=== PATIENT | female | born 1995 | race Two or more races ===

== ENCOUNTER 2017-09-27 20:03 | Emergency (ER) | payer OTHER ==
--- NOTE | 2017-09-27 20:20 | PDOC ---
Rapid Medical Evaluation Time Seen by Provider: 09/27/17 20:22 Medical Evaluation: Allergies Allergy/AdvReac Type Severity Reaction Status Date / Time No Known Allergies Allergy Verified 01/20/16 10:17 I have performed a brief in-person evaluation of this patient. The patient presents with a chief complaint of: LLQ pain radiating to left flank x1 week Pertinent physical exam findings: ABD: Obese abdomen. Soft nondistended. Tender to light palpation over LLQ. : Left CVAT. I have ordered the following: UPT, UA, CBC, CMP, Spiral CT of abdomen, Toradol The patient will proceed to the ED for further evaluation.
[2017-09-27 20:25] VITALS: BP 125/65; PULSE 96; TEMP 98.6; BMI 41.0
[2017-09-27] MEDS ORDERED: KETOROLAC TROMETHAMINE 30 MG/1 ML VIAL IVPUSH ONE (20:25)
[2017-09-27] MEDS ORDERED: SODIUM CHLORIDE 1,000 ML IV STA (20:25)
--- NOTE | 2017-09-27 22:40 | PDOC ---
History of Present Illness - General Chief Complaint: Pain Stated Complaint: ABD PAIN Time Seen by Provider: 09/27/17 20:21 - History of Present Illness Initial Comments: 22-year-old female with PMH of migraines presenting to the ED with LLQ abdominal pain and occasional back pain with urinary frequency. She states the pain started suddenly one night prior to her presentation in the ED and has not remitted. She describes the pain as an achy 5/10-7/10 left lower quadrant pain that is somewhat positional in nature. She also started to experience the pain her left lower back as well. She note some increased urinary frequency over the past week as well without hematuria or dysuria. Denies exacerbating or relieving symptoms. She has taken some advil without relief. Denies any N/V/D, dysuria, hematuria, chest pain, or other symptoms. 09/27/17 22:43 Past History - Past Medical History Allergies/Adverse Reactions: Allergies Allergy/AdvReac Type Severity Reaction Status Date / Time No Known Allergies Allergy Verified 09/27/17 20:21 Home Medications: Ambulatory Orders Diphenhydramine [Benadryl -] 25 mg PO TID 01/20/16 Divalproex [Depakote -] 125 mg PO BID #14 tablet. 01/20/16 Metoclopramide HCl 10 mg PO TID 01/20/16 Nadolol 20 mg PO BID 01/20/16 Nortriptyline HCl [Pamelor -] 75 mg PO BID 01/20/16 Tizanidine HCl 4 mg PO TID 01/20/16 Topiramate [Topamax] 25 mg PO TID 01/20/16 Topiramate [Topamax] 100 mg PO BID 01/20/16 Ibuprofen 800 mg PO TID #30 tablet 09/28/17 Asthma: Yes COPD: No HTN: Yes - Surgical History Appendectomy: Yes - Suicide/Smoking/Psychosocial Hx Smoking History: Never smoked Have you smoked in the past 12 months: No Information on smoking cessation initiated: No Hx Alcohol Use: No Drug/Substance Use Hx: No Substance Use Type: None Review of Systems - Review of Systems Constitutional: No: Chills, Fever HEENTM: No: Eye Pain, Blurred Vision Respiratory: No: Cough, Shortness of Breath, Wheezing Cardiac (ROS): No: Chest Pain, Edema ABD/GI: No: Constipated, Diarrhea, Nausea, Vomiting : No: Burning, Frequency Musculoskeletal: Yes: Back Pain *Physical Exam - Vital Signs Last Vital Signs Temp Pulse Resp BP Pulse Ox 98.6 F 96 H 20 125/65 98 09/27/17 20:22 09/27/17 20:22 09/27/17 20:22 09/27/17 20:22 09/27/17 20:22 - Physical Exam General Appearance: Yes: Nourished, Appropriately Dressed. No: Apparent Distress HEENT: positive: EOMI, CLAUDIA, Normal Voice Neck: positive: Trachea midline, Normal Thyroid, Supple. negative: Tender, Rigid Respiratory/Chest: positive: Lungs Clear, Normal Breath Sounds. negative: Chest Tender, Respiratory Distress Cardiovascular: positive: Regular Rhythm, Regular Rate. negative: Murmur Gastrointestinal/Abdominal: positive: Normal Bowel Sounds, Tender (Some left lower quadrant tenderness to to deep palpation), Flat, Soft Musculoskeletal: positive: Normal Inspection, CVA Tenderness (Left sided CVA tenderness vs. paraspinal muscular tenderness) Extremity: positive: Normal Capillary Refill, Normal Inspection, Normal Range of Motion. negative: Tender Integumentary: positive: Normal Color, Dry, Warm Neurologic: positive: Fully Oriented, Alert, Normal Mood/Affect, Normal Response , Motor Strength 5/5 ED Treatment Course - LABORATORY CBC & Chemistry Diagram: 09/27/17 23:49 09/28/17 00:36 Medical Decision Making - Medical Decision Making 22 year old f with history of migraines presenting with abdominal pain and urinary frequency. This is most concerning for a renal calculus but should also be ruled out. The other possibility is diverticulitis. However, she does not have fever so diverticulitis less likely. CT abdomen significant for mesenteric inflammation leading us to a possible diagnosis of mesenteric adenitis. Patient feelign better after two doses of toradol 15 IV, maalox, and famotidie. Will DC home with follow up with her PCP and Dr. Rogers of general surgery. 09/28/17 04:58 *DC/Admit/Observation/Transfer Diagnosis at time of Disposition: Mesenteric adenitis - Prescriptions Prescriptions: Ibuprofen 800 mg PO TID #30 tablet - Referrals Referrals: Mitchell Francis MD [Staff Physician] - Patrick Rogers MD [Staff Physician] - - Patient Instructions Printed Discharge Instructions: DI for Mesenteric Adenitis-Adult Additional Instructions: Take Motrin for pain as directed. Drink plenty of fluids and have plenty of bed rest - Post Discharge Activity Forms/Work/School Notes: Back to Work
--- NOTE | 2017-09-27 22:51 | PDOC ---
Attending Attestation - HPI HPI: 09/27/17 22:57 The patient is a 22 year old female with no significant PMH who presents to the emergency department with 1 day of abdominal pain. She reports the abdominal pain begins in the LLQ and radiates to her back. The patient also reports slight nausea and increased urinary frequency during the past day. The patient denies any recent trauma. Denies sick contacts or recent travel. The patient denies chest pain, shortness of breath, headache and dizziness. Denies fever, chills, vomit, diarrhea and constipation. Denies dysuria, urgency and hematuria. <Ben Santiago - Last Filed: 09/27/17 22:57> - Resident Resident Name: Jaden Bauer - ED Attending Attestation I have performed the following: I have examined & evaluated the patient, The case was reviewed & discussed with the resident, I agree w/resident's findings & plan, Exceptions are as noted - Physicial Exam PE: 09/28/17 02:30 *Physical Exam General Appearance: Yes: Appropriately Dressed. No: Apparent Distress, Intoxicated HEENT: positive: EOMI, CLAUDIA, Normal ENT Inspection, Normal Voice, TMs Normal, Pharynx Normal. negative: Pale Conjunctivae, Photophobia, Scleral Icterus (R), Scleral Icterus (L) Neck: positive: Trachea midline, Normal Thyroid, Supple. negative: Tender, Rigid, Carotid bruit, Stridor, Lymphadenopathy (R), Lymphadenopathy (L), Thyromegaly Respiratory/Chest: positive: Lungs Clear, Normal Breath Sounds. negative: Chest Tender, Respiratory Distress, Accessory Muscle Use, Labored Respiration, RES, Crackles, Rales, Rhonchi, Stridor, Wheezing, Dullness Cardiovascular: positive: Regular Rhythm, Regular Rate, S1, S2. negative: Edema , JVD, Murmur, Bradycardia, Tachycardia Vascular Pulses: Dorsalis-Pedis (R): 2+, Doralis-Pedis (L): 2+ Gastrointestinal/Abdominal: positive: Normal Bowel Sounds, Flat, Soft. negative : Tender, Organomegaly, Pulsatile Mass, Increased Bowel Sounds, Decreased BS, Distended, Guarding, Rebound, Hernia, Hepatomegaly, Spleenomegaly Lymphatic: negative: Adenopathy, Tenderness Musculoskeletal: positive: Normal Inspection. negative: CVA Tenderness, Decreased Range of Motion Extremity: positive: Normal Capillary Refill, Normal Inspection, Normal Range of Motion, Pelvis Stable. negative: Tender, Pedal Edema, Swelling, Erythema Integumentary: positive: Normal Color, Dry, Warm. 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 negative: EOM Palsy, Facial Droop, Sensory Deficit - Medical Decision Making 09/28/17 19:18 Pt feels better. Pt discharged with Motrin and advised to drink plenty of fluids and better <Jose Menjivar - Last Filed: 09/28/17 19:19> Discharge Disposition <Ben Santiago - Last Filed: 09/27/17 22:57> - Discharge Dispostion Admit: No <Jose Menjivar - Last Filed: 09/28/17 19:19> - Diagnosis Mesenteric adenitis - Discharge Dispostion Disposition: HOME - Prescriptions Prescriptions: Ibuprofen 800 mg PO TID #30 tablet - Referrals Referrals: Mitchell Francis MD [Staff Physician] - Patrick Rogers MD [Staff Physician] - - Patient Instructions Printed Discharge Instructions: DI for Mesenteric Adenitis-Adult Additional Instructions: Take Motrin for pain as directed. Drink plenty of fluids and have plenty of bed rest - Post Discharge Activity Work/School Note: Back to Work
[2017-09-27] MEDS ORDERED: ONDANSETRON 4 MG/2 ML VIAL IVPUSH ONE (23:51)
[2017-09-27 23:59] LABS: BASOPHIL 0.9 % (0-2.0); EOSINOPHIL 2.9 % (0-4.5); MCH 25.2 pg (25.7-33.7); MEAN CELL VOLUME 76.5 fl (80-96); MEAN PLT VOLUME 8.9 fl (7.5-11.1); NEUTROPHILS 40.8 % (42.8-82.8); PLATELET COUNT 347 K/MM3 (134-434); RDW 14.9 % (11.6-15.6); WHITE BLOOD COUNT 6.5 K/mm3 (4.0-10.0)
[2017-09-27] MEDS ORDERED: ONDANSETRON 4 MG/2 ML VIAL ONE ×2 (23:59)
[2017-09-27] MEDS ORDERED: KETOROLAC TROMETHAMINE 30 MG/1 ML VIAL ONE (23:59)
[2017-09-28 00:18] LABS: URINE APPEARANCE SLCLOUDY; URINE BILIRUBIN NEGATIVE (NEGATIVE); URINE BLOOD NEGATIVE (NEGATIVE); URINE COLOR YELLOW; URINE GLUCOSE (UA) NEGATIVE (NEGATIVE); URINE KETONE NEGATIVE (NEGATIVE); URINE NITRITE NEGATIVE (NEGATIVE); URINE PROTEIN NEGATIVE (NEGATIVE); URINE UROBILINOGEN NEGATIVE mg/dL (0.2-1.0)
[2017-09-28 01:17] LABS: ALBUMIN 3.5 g/dl (3.4-5.0); ALK PHOS 114 U/L (45-117); ANION GAP 9 (8-16); BILIRUBIN,TOTAL 0.5 mg/dL (0.2-1.0); CALCIUM 8.3 mg/dL (8.5-10.1); CO2 24 mmol/L (21-32); CREATININE 0.6 mg/dL (0.55-1.02); GLUCOSE,RANDOM 96 mg/dL (74-106); SGOT/AST 12 U/L (15-37); SGPT/ALT 20 U/L (12-78); TOT PROT 6.8 g/dl (6.4-8.2)
[2017-09-28] MEDS ORDERED: FAMOTIDINE 20 MG/50 ML IVPB 50 ML IVPB ONE ×2 (01:36→02:21)
[2017-09-28] MEDS ORDERED: MAG HYDROX/AL HYDROX/SIMETH 355 ML ORAL.SUSP PO ONE (01:36)
[2017-09-28] MEDS ORDERED: MAG HYDROX/AL HYDROX/SIMETH 30 ML UNIT-DOSE CUP ONE (02:21)
[2017-09-28] MEDS ORDERED: KETOROLAC TROMETHAMINE 30 MG/1 ML VIAL IVPUSH ONE (02:39)
[2017-09-28] MEDS ORDERED: PIPERACILLIN/TAZOB 3.375 GM 50 ML IVPB ONE (02:50)
[2017-09-28] MEDS ORDERED: KETOROLAC TROMETHAMINE 30 MG/1 ML VIAL ONE (04:19)
[2017-09-28 12:11] LABS: URINE LEUK ESTERASE TRACE (NEGATIVE)
[2017-09-28 12:12] LABS: URINE BACTERIA FEW /hpf (NEGATIVE); URINE RBC 0-3 /hpf (0-3); URINE WBC 0-3 /hpf (3-5)
== END 2017-09-28 04:25 | disposition home or self-care (01) ==
LOC: JER 20:03
PROC: 3E0333Z Introduction of Anti-inflammatory into Peripheral Vein, Percutaneous Approach (ICD-10-PCS; principal; 2017-09-27)
PROC: 3E033GC Introduction of Other Therapeutic Substance into Peripheral Vein, Percutaneous Approach (ICD-10-PCS; 2017-09-27)
PROC: 3E0337Z Introduction of Electrolytic and Water Balance Substance into Peripheral Vein, Percutaneous Approach (ICD-10-PCS; 2017-09-27)
DX: M54.5 Low back pain (principal); I88.0 Nonspecific mesenteric lymphadenitis
CPT/HCPCS: 36415; 74176; 80053; 81003; 81015; 84703; 85025; 99282-25

== ENCOUNTER 2020-11-08 20:31 | Emergency (ER) | payer OTHER ==
[2020-11-08 20:44] VITALS: BP 123/81; PULSE 90; TEMP 97.8; BMI 38.0
[2020-11-08] MEDS ORDERED: ACETAMINOPHEN 500 MG TABLET (FP) PO ONE (21:20)
[2020-11-08] MEDS ORDERED: ACETAMINOPHEN 325 MG TABLET (FP) ONE (21:24)
[2020-11-08] MEDS ORDERED: IBUPROFEN 600 MG TABLET (FP) PO ONE ×2 (23:05→23:08)
== END 2020-11-08 23:12 | disposition home or self-care (01) ==
LOC: JER 20:31
DX: M54.2 Cervicalgia (principal)
CPT/HCPCS: 72125-TC; 99284-25

== ENCOUNTER 2022-02-01 21:07 | Emergency (ER) | payer OTHER ==
[2022-02-01 21:14] VITALS: BP 120/50; PULSE 87; TEMP 98; BMI 39.5
[2022-02-01] MEDS ORDERED: predniSONE 20 MG TABLET (UD) PO ONE (22:20)
[2022-02-01] MEDS ORDERED: predniSONE 20 MG TABLET (UD) ONE (22:28)
[2022-02-01] MEDS ORDERED: ALBUTEROL SO4 2.5/IPRATROPIUM 0.5 INH SOL 3 ML VIAL.NEB. NEB ONE (22:28)
[2022-02-01] MEDS: ALBUTEROL SO4 2.5/IPRATROPIUM 0.5 INH SOL 3 ML VIAL.NEB. NEB SCH ×4 (22:45→23:11)
== END 2022-02-01 23:45 | disposition home or self-care (01) ==
LOC: JER 21:07 → JERFT 21:07
PROC: 3E0F7GC Introduction of Other Therapeutic Substance into Respiratory Tract, Via Natural or Artificial Opening (ICD-10-PCS; principal; 2022-02-01)
DX: J68.3 Other acute and subacute respiratory conditions due to chemicals, gases, fumes and vapors (principal)
CPT/HCPCS: 99283-25

== ENCOUNTER 2022-05-28 07:30 | Emergency (ER) | payer OTHER ==
[2022-05-28 07:55] VITALS: BP 126/84; PULSE 72; TEMP 98; BMI 39.0
[2022-05-28] MEDS ORDERED: SODIUM CHLORIDE 0.9% 500 ML INFUS.BAG IV ONE (08:08)
[2022-05-28 08:54] LABS: BASO % 1.1 % (0-2.0); EOS % 3.6 % (0-4.5); HEMATOCRIT 36.6 % (32.4-45.2); HEMOGLOBIN 11.9 GM/dL (10.7-15.3); LYMPH % 37.8 % (8-40); MCH 25.9 pg (25.7-33.7); MCHC 32.6 g/dl (32.0-36.0); MEAN CELL VOLUME 79.6 fl (80-96); MEAN PLT VOLUME 9.6 fl (7.5-11.1); MONO % 9.5 % (3.8-10.2); RDW 14.8 % (11.6-15.6)
[2022-05-28 08:59] LABS: WHITE BLOOD COUNT 6.8 K/mm3 (4.0-10.0)
[2022-05-28 09:00] LABS: PLATELET COUNT 288 10^3/uL (134-434)
[2022-05-28 09:09] LABS: CREATININE 0.7 mg/dL (0.55-1.3)
== END 2022-05-28 10:56 | disposition home or self-care (01) ==
LOC: JER 07:30
DX: R42 Dizziness and giddiness (principal)
CPT/HCPCS: 36415; 80048; 85025; 93005; 93010; 99285-25